=== PATIENT | male | born 1975 | race Caucasian/White ===

== ENCOUNTER 2021-10-30 11:04 | Emergency (ER) | payer OTHER | END 2021-10-30 14:13 | disposition home or self-care (01) | LOC: JD.ED 11:04 | DX: R10.32 Left lower quadrant pain (principal); Z88.0 Allergy status to penicillin; Z91.030 Bee allergy status; Z86.16 Personal history of COVID-19 | CPT/HCPCS: 76705; 76705-26; 99283; 99284-25 ==

== ENCOUNTER 2021-12-01 10:29 | Day surgery (SDC) | payer OTHER ==
[~2021-12-01 10:29] MED LIST: Lactated Ringers 1,000 ML IV SCH; Lidocaine 1%/Sod Bicarbonate in NS 8.4% 1 ML Syringe IDERM PRN; Sodium Chloride 0.9% 10 ML Syringe FLUSH PRN; Sodium Chloride 0.9% 10 ML Syringe FLUSH SCH
[2021-12-01] MEDS ORDERED: Bupivacaine 0.5%/EPINEPHrine 1:200,000 50 ML MDV ONE (10:59)
[2021-12-01] MEDS ORDERED: Propofol 200 MG/20 ML SDV ONE (11:49)
[2021-12-01] MEDS ORDERED: Lidocaine 1% 5 ML VIAL ONE (11:49)
[2021-12-01] MEDS ORDERED: Midazolam 1 MG/ML 2 ML SDV ONE (11:50)
[2021-12-01] MEDS ORDERED: fentaNYL 100 MCG/2 ML SDV ONE ×2 (11:50→13:09)
[2021-12-01] MEDS ORDERED: Ondansetron 4 MG/2 ML SDV ONE (11:52)
[2021-12-01] MEDS ORDERED: Clindamycin Phosphate in D5W 900 MG in Premix Bag 1 BAG IV ONE ×2 (12:00)
[2021-12-01] MEDS ORDERED: ePHEDrine 50 MG/ML SDV ONE (13:31)
[2021-12-01] MEDS ORDERED: Dexamethasone 4 MG/ML 5 ML MDV ONE (13:45)
[2021-12-01] MEDS ORDERED: Ketorolac 15 MG/ML SDV ONE (13:55)
[2021-12-01] MEDS ORDERED: HYDROmorphone 0.5 MG/0.5 ML Syringe IVPUSH PRN (14:22)
[2021-12-01] MEDS ORDERED: Ondansetron 4 MG/2 ML SDV IVPUSH PRN (14:22)
[2021-12-01] MEDS ORDERED: fentaNYL 100 MCG/2 ML SDV IVPUSH PRN (14:22)
[2021-12-01] MEDS ORDERED: oxyCODONE 5 MG Tab PO ONE (15:00)
== END 2021-12-01 15:55 | disposition home or self-care (01) ==
LOC: JD.SDS 10:29
PROVIDERS: ATTEND Surgery
DX: K40.91 Unilateral inguinal hernia, without obstruction or gangrene, recurrent (principal); G89.29 Other chronic pain; G47.33 Obstructive sleep apnea (adult) (pediatric); Z88.0 Allergy status to penicillin; Z90.49 Acquired absence of other specified parts of digestive tract; Z91.030 Bee allergy status; Z79.899 Other long term (current) drug therapy; Z87.891 Personal history of nicotine dependence; Z98.890 Other specified postprocedural states
CPT/HCPCS: 49520; J1100; J1885; J2250; J2405; J2704; J3010; J3490; J7120; C1781